=== PATIENT | male | born 1980 | race Caucasian/White ===

== ENCOUNTER → 2017-12-05 | Outpatient (CLI) | payer MEDICARE, OTHER ==
[~2017-12-05] MED LIST: B-121000 MC2; BUSP15; Benztropine Me0.5 MG; Benztropine Mesy1 MG; Crutch1 EACH MISC; DOXY100 PO; DULOXETINE HCL60 MG; HYDACE10B PO; HYDACE5 PO; HYDPAM25; IBUP800 PO; Keflex500 MG PO; LAMO100; Loxapine25 MG; MARIJUANA; PERP4 PO; PRAZ2; PRAZ5 PO; PROACE100 PO; Percocet 10-321 EACH PO; Prazosin HCl1 MG; Prazosin HCl2 MG; Robaxin500 MG PO; SERT100 PO; TIZANIDINE HCL 4 MG; TRAZ100; TRAZ50; Ultram50 MG PO; VENL150ER; VENL75ER PO; Zofran Odt8 MG SL
[2017-12-05 09:37] LABS: Specimen Source URINE
[2017-12-06 01:06] LABS: Source Urine
[2017-12-08 10:43] LABS: HCV Non Reactive (NR)
== END | disposition home or self-care (01) ==
LOC: LAB EV 09:26
PROVIDERS: Physician Assistant Surgical
DX: N34.2 Other urethritis (principal); Z20.9 Contact with and (suspected) exposure to unspecified communicable disease; R30.0 Dysuria; R53.83 Other fatigue
CPT/HCPCS: 80074; 86592; 87086; 87389; 87491; 87591

== ENCOUNTER 2017-12-31 08:39 | Day surgery (SDC) | payer OTHER, MEDICARE ==
[~2017-12-31] VITALS: Ht 175.3 cm; Wt 69.6 kg
== END 2017-12-31 11:26 | disposition home or self-care (01) ==
LOC: ORSCSDS 08:39
PROVIDERS: Ophthalmology
PROC: 08C Eye, Extirpation (ICD-10-PCS; principal; 2017-12-31 10:00)
DX: H02.814 Retained foreign body in left upper eyelid (principal); F20.9 Schizophrenia, unspecified; Z79.899 Other long term (current) drug therapy; F17.210 Nicotine dependence, cigarettes, uncomplicated
CPT/HCPCS: J2250; J3010

== ENCOUNTER → 2019-01-18 | Outpatient (CLI) | payer MEDICARE ==
[2019-01-18 16:02] LABS: Prostate Specific Antigen 0.482 ng/mL (0.000-4.000)
== END | disposition home or self-care (01) ==
LOC: LAB EV 14:40 → LAB SHORT 14:40
PROVIDERS: Physician Assistant Medical
DX: Z12.5 Encounter for screening for malignant neoplasm of prostate (principal); R39.198 Other difficulties with micturition
CPT/HCPCS: G0103

== ENCOUNTER 2019-03-08 19:07 | Observation (INO) | payer MEDICARE, OTHER ==
[~2019-03-08] VITALS: Ht 175.3 cm; Wt 77.1 kg
[~2019-03-08 19:07] MED LIST changes: -B-121000 MC2; +B-121000 MC2 PO; -HYDPAM25; +HYDPAM25 PO; -LAMO100; +LAMO100 PO; -VENL150ER; +VENL150ER PO
[2019-03-08] MEDS ORDERED: OLANZAPINE15 MG PO (20:13)
[2019-03-08 20:24] LABS: BASOPHILS ABSOLUTE AUTO 0.03 K/mm3 (0.00-0.23); BASOPHILS PERCENT AUTO 0 % (0-2); EOSINOPHILS ABSOLUTE AUTO 0.06 K/mm3 (0.00-0.68); EOSINOPHILS PERCENT AUTO 1 % (0-6); Hematocrit 44.3 % (37.0-53.0); Hemoglobin 14.9 g/dL (13.5-17.5); IMMATURE GRAN ABSOLUTE AUTO 0.06 K/mm3 (0.00-0.10); IMMATURE GRAN PERCENT AUTO 1 % (0-1); LYMPHOCYTES ABSOLUTE AUTO 2.93 K/mm3 (0.84-5.20); LYMPHOCYTES PERCENT AUTO 32 % (21-46); MONOCYTES ABSOLUTE AUTO 0.74 K/mm3 (0.16-1.47); MONOCYTES PERCENT AUTO 8 % (4-13); Mean Corpuscular HGB Conc 33.6 g/dL (31.5-36.5); Mean Corpuscular Volume 89 fL (80-100); Mean Platelet Volume 9.3 fL (9.1-12.4); NEUTROPHILS ABSOLUTE AUTO 5.27 K/mm3 (1.96-9.15); NEUTROPHILS PERCENT AUTO 58 % (41-73); Platelet Count 238 K/mm3 (150-400); RDW Coefficient Variation 12.8 % (11.7-14.2); Red Blood Cell Count 4.96 M/mm3 (4.30-5.90); White Blood Cell Count 9.09 K/mm3 (4.00-11.30)
[2019-03-08 20:46] LABS: Alanine Aminotransfer (ALT/SGP 33 U/L (12-78); Albumin/Globulin Ratio 1.3 (0.8-1.8); Alk Phos 145 U/L (50-136); Anion Gap 6 mmol/L (6-16); Aspartate Aminotrans (AST/SGOT 18 U/L (12-37); Bilirubin, Total 0.8 mg/dL (0.1-1.0); Blood Urea Nitrogen 8 mg/dL (8-24); Bun/Creatinine Ratio 7.4 (12.0-20.0); CO2, Blood 29 mmol/L (21-32); Calcium, Blood 9.1 mg/dL (8.5-10.1); Chloride, Blood 105 mmol/L (98-108); Creatinine, Blood 1.08 mg/dL (0.60-1.20); Ethanol (Alcohol), Blood, Med <3 mg/dL; Globulin, Blood 3.1 g/dL (2.2-4.0); Glomerular Filtration Rate >60 (60-); Glucose, Blood 80 mg/dL (70-99); Potassium, Blood 3.7 mmol/L (3.5-5.5); Salicylate 3.9 mg/dL (2.8-20.0); Sodium, Blood 140 mmol/L (136-145); Total Protein, Blood 7.1 g/dL (6.4-8.2)
[2019-03-08 20:50] LABS: Acetaminophen, Random <2.0 ug/mL (10.0-30.0)
[2019-03-09 11:39] LABS: Source, Urine Clean Catch
[2019-03-09 12:17] LABS: Blood, Urine Neg (Neg); Glucose Qualitative, Urine Neg (Neg); Ketones, Urine 1+ (Neg); Leukocyte Esterase, Urine 2+ (Neg); Nitrite, Urine Neg (Neg); Protein, Urine 2+ (Neg); Specific Gravity, Urine 1.015 (1.003-1.022); Urobilinogen, Urine 2+ (Normal); pH, Urine 6.5 (5.0-8.0)
[2019-03-09 12:25] LABS: Appearance, Urine Hazy (Clear); Bilirubin, Urine 1+ (Neg); Color, Urine Yellow (P-Yellow)
[2019-03-09 12:26] LABS: White Blood Cells, Urine 25-50 /hpf (0-5)
[2019-03-09 12:27] LABS: Bacteria Few /hpf; Mucus Light (0-Heavy); Source, Urine Clean Catch; Squamous Epithelial Cells Few /hpf (Few)
[2019-03-09 12:35] LABS: U Amphetamine Screen DETECTED; U Barbituate Screen Not Detected; U Benzodiazapine Screen DETECTED; U Cocaine Screen Not Detected; U Methadone Screen Not Detected; U Methamphetamine Screen DETECTED; U Opiates Screen Not Detected
[2019-03-09 12:36] LABS: U Buprenorphine Screen Not Detected; U Cannabinoids Screen DETECTED; U Oxycodone Screen Not Detected; U Phencyclidine Screen DETECTED; U Propoxyphene Screen Not Detected
[2019-03-09 12:48] LABS: Bacteria Few /hpf; Mucus Light (0-Heavy); Squamous Epithelial Cells Few /hpf (Few); White Blood Cells, Urine 25-50 /hpf (0-5)
== END 2019-03-10 13:49 | disposition home or self-care (01) ==
LOC: ER 19:07 → EOR 19:08
PROVIDERS: Physician Assistant; ADMIT Emergency Medicine
DX: F25.9 Schizoaffective disorder, unspecified (principal); F32.9 Major depressive disorder, single episode, unspecified; E78.5 Hyperlipidemia, unspecified; Z79.899 Other long term (current) drug therapy; Z91.041 Radiographic dye allergy status; Z88.2 Allergy status to sulfonamides; Z88.1 Allergy status to other antibiotic agents; Z87.891 Personal history of nicotine dependence
CPT/HCPCS: 36415; 80053; 81001; 84439; 84443; 85025; 87086; 99285; G0378; G0480; Q3014

== ENCOUNTER 2021-08-29 21:34 | Inpatient (IN) | payer MEDICARE, OTHER ==
[~2021-08-29] VITALS: Ht 175.3 cm; Wt 84.8 kg
[~2021-08-29 21:34] MED LIST changes: +OLANZAPINE15 MG PO
[2021-08-29 21:55] LABS: BASOPHILS ABSOLUTE AUTO 0.06 K/mm3 (0.00-0.23); BASOPHILS PERCENT AUTO 1 % (0-2); EOSINOPHILS PERCENT AUTO 1 % (0-6); Hemoglobin 14.1 g/dL (13.5-17.5); IMMATURE GRAN ABSOLUTE AUTO 0.11 K/mm3 (0.00-0.10); IMMATURE GRAN PERCENT AUTO 1 % (0-1); LYMPHOCYTES ABSOLUTE AUTO 3.12 K/mm3 (0.84-5.20); LYMPHOCYTES PERCENT AUTO 24 % (21-46); MONOCYTES ABSOLUTE AUTO 1.12 K/mm3 (0.16-1.47); MONOCYTES PERCENT AUTO 9 % (4-13); Mean Corpuscular HGB 29.3 pg (26.0-34.0); Mean Corpuscular HGB Conc 32.8 g/dL (31.5-36.5); Mean Corpuscular Volume 89 fL (80-100); NEUTROPHILS PERCENT AUTO 65 % (41-73); Platelet Count 269 K/mm3 (150-400); RDW Standard Deviation 42.5 fL (35.1-46.3); Red Blood Cell Count 4.81 M/mm3 (4.30-5.90); White Blood Cell Count 13.01 K/mm3 (4.00-11.30)
[2021-08-29 22:23] LABS: Alanine Aminotransfer (ALT/SGP 30 U/L (12-78); Albumin, Blood 3.7 g/dL (3.4-5.0); Alk Phos 137 U/L (50-136); Anion Gap 9 mmol/L (6-16); Aspartate Aminotrans (AST/SGOT 15 U/L (12-37); Bilirubin, Total 0.7 mg/dL (0.1-1.0); Blood Urea Nitrogen 12 mg/dL (8-24); Bun/Creatinine Ratio 10.6 (12.0-20.0); CO2, Blood 28 mmol/L (21-32); Calcium, Blood 9.3 mg/dL (8.5-10.1); Chloride, Blood 101 mmol/L (98-108); Creatinine, Blood 1.13 mg/dL (0.60-1.20); Globulin, Blood 3.6 g/dL (2.2-4.0); Glomerular Filtration Rate >60 (60-); Glucose, Blood 103 mg/dL (70-99); Potassium, Blood 3.9 mmol/L (3.5-5.5); Sodium, Blood 138 mmol/L (136-145); Total Protein, Blood 7.3 g/dL (6.4-8.2)
[2021-08-29 22:53] LABS: Source, Urine Clean Catch
[2021-08-29 22:55] LABS: Bilirubin, Urine Neg (Neg); Blood, Urine Neg (Neg); Glucose Qualitative, Urine Neg (Neg); Ketones, Urine Neg (Neg); Leukocyte Esterase, Urine 1+ (Neg); Nitrite, Urine Neg (Neg); Protein, Urine 1+ (Neg); Specific Gravity, Urine 1.015 (1.003-1.022); Urobilinogen, Urine NORM (Normal); pH, Urine 6.5 (5.0-8.0)
[2021-08-29 23:15] LABS: U Amphetamine Screen Not Detected; U Barbituate Screen Not Detected; U Benzodiazapine Screen Not Detected; U Buprenorphine Screen Not Detected; U Cannabinoids Screen DETECTED; U Cocaine Screen Not Detected; U Methadone Screen Not Detected; U Methamphetamine Screen Not Detected; U Opiates Screen Not Detected; U Oxycodone Screen Not Detected; U Phencyclidine Screen Not Detected; U Propoxyphene Screen Not Detected
[2021-08-29] MEDS ORDERED: BUPROPION XL150 M1 PO ×2 (23:30)
[2021-08-29] MEDS ORDERED: OLANZAPINE PO (23:31)
[2021-08-29] MEDS ORDERED: TAMSULOSIN HCL0.4 M1 PO (23:31)
[2021-08-29] MEDS ORDERED: BUPR150ER (23:32)
[2021-08-29] MEDS ORDERED: Budeprion Xl300 MG (23:34)
[2021-08-29 23:42] LABS: Appearance, Urine Clear (Clear); Color, Urine Yellow (P-Yellow)
[2021-08-29 23:43] LABS: Troponin I <0.015 ng/mL (0.000-0.040)
[2021-08-29 23:44] LABS: Bacteria Few /hpf; Mucus Light (0-Heavy); Red Blood Cells, Urine 0-2 /hpf (0-2); Squamous Epithelial Cells Few /hpf (Few)
[2021-08-30 00:51] LABS: Influenza A, PCR NEGATIVE (NEGATIVE); Influenza B, PCR NEGATIVE (NEGATIVE); Resp Syncytial Virus, PCR NEGATIVE (NEGATIVE); SARS-Cov-2 (COVID-19) PCR, MMC NEGATIVE (NEGATIVE)
--- NOTE | 2021-08-30 04:28 | NUR ---
PT WAS ALERT AND ORIENTED X4, VITAL SIGNS WHERE STABLE. PT HAS PAIN IN RIGHT HAND AND LEFT LEG DUE TO CELLULITIS. 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
[2021-08-30 05:40] LABS: BASOPHILS ABSOLUTE AUTO 0.04 K/mm3 (0.00-0.23); BASOPHILS PERCENT AUTO 0 % (0-2); EOSINOPHILS PERCENT AUTO 1 % (0-6); Hematocrit 39.1 % (37.0-53.0); Hemoglobin 13.1 g/dL (13.5-17.5); IMMATURE GRAN ABSOLUTE AUTO 0.09 K/mm3 (0.00-0.10); IMMATURE GRAN PERCENT AUTO 1 % (0-1); LYMPHOCYTES ABSOLUTE AUTO 1.66 K/mm3 (0.84-5.20); LYMPHOCYTES PERCENT AUTO 16 % (21-46); MONOCYTES ABSOLUTE AUTO 0.91 K/mm3 (0.16-1.47); MONOCYTES PERCENT AUTO 9 % (4-13); Mean Corpuscular HGB 29.9 pg (26.0-34.0); Mean Corpuscular HGB Conc 33.5 g/dL (31.5-36.5); Mean Corpuscular Volume 89 fL (80-100); Mean Platelet Volume 9.3 fL (9.1-12.4); NEUTROPHILS PERCENT AUTO 73 % (41-73); Platelet Count 215 K/mm3 (150-400); RDW Coefficient Variation 12.9 % (11.7-14.2); RDW Standard Deviation 42.3 fL (35.1-46.3); Red Blood Cell Count 4.38 M/mm3 (4.30-5.90)
[2021-08-30 06:46] LABS: Alanine Aminotransfer (ALT/SGP 24 U/L (12-78); Albumin, Blood 3.2 g/dL (3.4-5.0); Alk Phos 121 U/L (50-136); Anion Gap 8 mmol/L (6-16); Aspartate Aminotrans (AST/SGOT 12 U/L (12-37); Bilirubin, Total 0.7 mg/dL (0.1-1.0); Blood Urea Nitrogen 11 mg/dL (8-24); Bun/Creatinine Ratio 11.4 (12.0-20.0); CO2, Blood 29 mmol/L (21-32); Chloride, Blood 102 mmol/L (98-108); Creatinine, Blood 0.97 mg/dL (0.60-1.20); Globulin, Blood 3.3 g/dL (2.2-4.0); Glomerular Filtration Rate >60 (60-); Glucose, Blood 111 mg/dL (70-99); Potassium, Blood 4.3 mmol/L (3.5-5.5); Sodium, Blood 139 mmol/L (136-145); Total Protein, Blood 6.5 g/dL (6.4-8.2)
--- NOTE | 2021-08-30 17:35 | NUR ---
PATIENT A/O X4. VITALS STABLES. PT COMPLAINTS OF PAIN IN RIGHT ANKLE, RIGHT HAND. PAIN TREATED PER NOV. PT AMBULATES WELL TO THE BATHROOM. NO SIGNS OF ACUTE CHANGES. FAMILY AT BEDSIDE
--- NOTE | 2021-08-31 04:28 | NUR ---
PT WAS ALERT AND ORIENTED X4, STABLE VITALS, NO ACUTE CHANGES. SWELLING ON HAND AND FEET ARE REDUCING. PAIN ONLY REQUESTED FOR TYLENOL ONCE AT THE BEGIN OF THE SHIFT AND SLEPT THE WHOLE NIGHT.
[2021-08-31 06:08] LABS: BASOPHILS ABSOLUTE AUTO 0.03 K/mm3 (0.00-0.23); BASOPHILS PERCENT AUTO 0 % (0-2); EOSINOPHILS ABSOLUTE AUTO 0.15 K/mm3 (0.00-0.68); EOSINOPHILS PERCENT AUTO 2 % (0-6); Hematocrit 41.2 % (37.0-53.0); Hemoglobin 13.4 g/dL (13.5-17.5); IMMATURE GRAN ABSOLUTE AUTO 0.08 K/mm3 (0.00-0.10); IMMATURE GRAN PERCENT AUTO 1 % (0-1); LYMPHOCYTES ABSOLUTE AUTO 1.81 K/mm3 (0.84-5.20); LYMPHOCYTES PERCENT AUTO 20 % (21-46); MONOCYTES PERCENT AUTO 9 % (4-13); Mean Corpuscular HGB 29.5 pg (26.0-34.0); Mean Corpuscular HGB Conc 32.5 g/dL (31.5-36.5); Mean Corpuscular Volume 91 fL (80-100); Mean Platelet Volume 9.4 fL (9.1-12.4); NEUTROPHILS ABSOLUTE AUTO 6.12 K/mm3 (1.96-9.15); NEUTROPHILS PERCENT AUTO 68 % (41-73); Platelet Count 209 K/mm3 (150-400); RDW Standard Deviation 42.6 fL (35.1-46.3); Red Blood Cell Count 4.55 M/mm3 (4.30-5.90); White Blood Cell Count 8.99 K/mm3 (4.00-11.30)
[2021-08-31 06:42] LABS: Anion Gap 9 mmol/L (6-16); Blood Urea Nitrogen 14 mg/dL (8-24); Bun/Creatinine Ratio 15.1 (12.0-20.0); CO2, Blood 25 mmol/L (21-32); Calcium, Blood 9.3 mg/dL (8.5-10.1); Chloride, Blood 106 mmol/L (98-108); Creatinine, Blood 0.93 mg/dL (0.60-1.20); Glomerular Filtration Rate >60 (60-); Glucose, Blood 102 mg/dL (70-99); Potassium, Blood 4.5 mmol/L (3.5-5.5); Sodium, Blood 140 mmol/L (136-145)
--- NOTE | 2021-08-31 10:09 | NUR ---
PT HR ELEVATED. PATIENT ASYMPTOMATIC,WATCHING TV AND TALKING TO STAFF.DR BRUCE NOTIFIED.NO ORDER RECEIVED.WILL CONTINUE TO MONITOR
[2021-08-31 10:45] LABS: Vancomycin, Trough 15.6 ug/mL (5.0-10.0)
[2021-08-31] MEDS ORDERED: Acetaminophen325 M1 PO (16:03)
[2021-08-31] MEDS ORDERED: DOXY100 PO (16:03)
[2021-08-31] MEDS ORDERED: AMOX875 PO (16:03)
[2021-08-31] MEDS ORDERED: VISBIOME 112.51 EACH PO (16:03)
--- NOTE | 2021-08-31 17:15 | NUR ---
PT A/O X4. AMBULATES WELL IN ROOM, TO THE BATHROOM. NO COMPLAINTS OF PAIN. NO ACUTE CHANGES NOTED. PT IS PLEASANT AND COOPERATIVE.PT LYING IN BED WATCHING TV. CALL LIGHT WITHIN REACH, BED LOWEST POSITION
--- NOTE | 2021-08-31 17:19 | NUR ---
DISCHARGE ORDER RECEIVED FOR PATIENT. NO SIGNS OF ACUTE CHANGES. PATIENT DENIES PAIN/DISCOMFORT. SISTER AT BEDSIDE. DISCHARGE INSTRUCTIONS GIVEN TO PATIENT. REVIEWED MEDICATIONS WITH PATIENT. CONFIRMED PHARMACY. PATIENT VERBALIZE UNDERSTANDING. TELE BOX AND IV REMOVED. PATIENT LEFT AROUND 4:45PM
[2021-09-03 12:08] LABS: LYME IGG/IGM AB <0.91 ISR (0.00-0.90)
== END 2021-08-31 16:56 | disposition home or self-care (01) | DRG 872 ==
LOC: ER 21:34 → MEDS 23:37
PROVIDERS: Emergency Medicine; Pharmacist; Physician Assistant; Student in an Organized Health Care Education/Training Program; ADMIT Internal Medicine
DX: A41.9 Sepsis, unspecified organism (principal); L03.115 Cellulitis of right lower limb; L03.113 Cellulitis of right upper limb; Z20.822 Contact with and (suspected) exposure to COVID-19; N49.2 Inflammatory disorders of scrotum; L30.9 Dermatitis, unspecified; F41.8 Other specified anxiety disorders; N40.0 Benign prostatic hyperplasia without lower urinary tract symptoms; F25.9 Schizoaffective disorder, unspecified; E78.5 Hyperlipidemia, unspecified; F12.90 Cannabis use, unspecified, uncomplicated; Z98.890 Other specified postprocedural states; Z28.21 Immunization not carried out because of patient refusal; Z88.2 Allergy status to sulfonamides; Z91.041 Radiographic dye allergy status; Z79.899 Other long term (current) drug therapy
CPT/HCPCS: 0241U; 36415; 73700; 76870; 80048; 80053; 80202; 81001; 83605; 84484; 85025; 85651; 86038; 86140; 86592; 86618; 87040; 87070; 87075; 87086; 87205; 87591; 94760; 96365; 96366; 96367; 96375; 99285-25; A9270; J0696; J1650; J3010; J3370; J7050

== ENCOUNTER 2022-06-27 11:54 | Emergency (ER) | payer MEDICARE, OTHER ==
[~2022-06-27] VITALS: Ht 175.3 cm; Wt 81.7 kg
[~2022-06-27 11:54] MED LIST changes: +AMOX875 PO; +Acetaminophen325 M1 PO; +BUPR150ER; +BUPROPION XL150 M1 PO; +Budeprion Xl300 MG; +OLANZAPINE PO; +TAMSULOSIN HCL0.4 M1 PO; +VISBIOME 112.51 EACH PO
[2022-06-27] MEDS ORDERED: DAPS100 PO (12:36)
[2022-06-27] MEDS ORDERED: METPRE4DP PO (12:36)
[2022-07-08] MEDS ORDERED: PRED20 PO (10:54)
== END 2022-06-27 12:43 | disposition home or self-care (01) ==
LOC: ER 11:54
DX: L52 Erythema nodosum (principal)
CPT/HCPCS: 99282

== ENCOUNTER → 2023-04-22 | Outpatient (CLI) | payer MEDICARE, OTHER ==
[~2023-04-22] MED LIST changes: +DAPS100 PO; +METPRE4DP PO; +PRED20 PO
[2023-04-24 10:29] LABS: Stool Occult Bld Immuno 1 Negative (NEGATIVE)
== END ==
LOC: LAB SHORT 07:00 → LAB 07:00
PROVIDERS: Physician Assistant
DX: Z12.11 Encounter for screening for malignant neoplasm of colon (principal)
CPT/HCPCS: G0328

== ENCOUNTER 2024-09-30 01:11 | Day surgery (SDC) | payer MEDICARE, OTHER ==
[~2024-09-30 01:11] MED LIST changes: +ABILIFY5 MG PO; +QUETIAPINE FUMARATE PO
[2024-09-30 14:05] VITALS: BP 128/90
[2024-09-30] MEDS ORDERED: GOLIMUMAB IV SCH (14:20)
[2024-09-30] MEDS ORDERED: NS IV SCH (14:20)
[2024-09-30 14:53] LABS: BASOPHILS ABSOLUTE AUTO 0.05 K/mm3 (0.00-0.23); BASOPHILS PERCENT AUTO 1 % (0-2); EOSINOPHILS ABSOLUTE AUTO 0.15 K/mm3 (0.00-0.68); EOSINOPHILS PERCENT AUTO 2 % (0-6); Hematocrit 39.4 % (37.0-53.0); Hemoglobin 13.8 g/dL (13.5-17.5); IMMATURE GRAN ABSOLUTE AUTO 0.06 K/mm3 (0.00-0.10); IMMATURE GRAN PERCENT AUTO 1 % (0-1); LYMPHOCYTES ABSOLUTE AUTO 3.18 K/mm3 (0.84-5.20); LYMPHOCYTES PERCENT AUTO 43 % (21-46); MONOCYTES PERCENT AUTO 7 % (4-13); Mean Corpuscular HGB 31.2 pg (26.0-34.0); Mean Corpuscular Volume 89 fL (80-100); Mean Platelet Volume 9.3 fL (9.1-12.4); NEUTROPHILS ABSOLUTE AUTO 3.44 K/mm3 (1.96-9.15); NEUTROPHILS PERCENT AUTO 47 % (41-73); Platelet Count 179 K/mm3 (150-400); RDW Coefficient Variation 12.2 % (11.7-14.2); RDW Standard Deviation 40.1 fL (35.1-46.3); Red Blood Cell Count 4.43 M/mm3 (4.30-5.90); White Blood Cell Count 7.38 K/mm3 (4.00-11.30)
[2024-09-30 15:35] LABS: Albumin, Blood 3.7 g/dL (3.4-5.0); Albumin/Globulin Ratio 1.3 (0.8-1.8); Bilirubin, Total 0.4 mg/dL (0.1-1.0); Bun/Creatinine Ratio 7.3 (12.0-20.0); C-REACTIVE PROTEIN, EXT RANGE 0.312 mg/dL (0.000-0.300); Calcium, Blood 9.2 mg/dL (8.5-10.1); Creatinine, Blood 1.1 mg/dL (0.60-1.20); Globulin, Blood 2.9 g/dL (2.2-4.0); Potassium, Blood 3.7 mmol/L (3.5-5.5); Total Protein, Blood 6.6 g/dL (6.4-8.2)
== END 2024-09-30 15:10 | disposition home or self-care (01) ==
LOC: ATC 01:11
PROVIDERS: Internal Medicine
DX: M06.09 Rheumatoid arthritis without rheumatoid factor, multiple sites (principal); F20.9 Schizophrenia, unspecified; F31.9 Bipolar disorder, unspecified; F43.10 Post-traumatic stress disorder, unspecified; Z79.899 Other long term (current) drug therapy; Z91.030 Bee allergy status
CPT/HCPCS: 80053; 85025; 86140; 96365; J1602

== ENCOUNTER 2024-12-01 02:18 | Day surgery (SDC) | payer MEDICARE, OTHER ==
[2024-12-01 13:50] VITALS: BP 129/86
[2024-12-01] MEDS ORDERED: PRAZ5 PO (13:54)
[2024-12-01] MEDS ORDERED: NS IV SCH (13:55)
[2024-12-01] MEDS ORDERED: GOLIMUMAB IV SCH (13:55)
== END 2024-12-01 15:10 | disposition home or self-care (01) ==
LOC: ATC 02:18
DX: M06.09 Rheumatoid arthritis without rheumatoid factor, multiple sites (principal); F31.9 Bipolar disorder, unspecified; F43.10 Post-traumatic stress disorder, unspecified; F20.9 Schizophrenia, unspecified; Z79.899 Other long term (current) drug therapy; Z87.891 Personal history of nicotine dependence; Z91.030 Bee allergy status; Z88.2 Allergy status to sulfonamides; Z88.8 Allergy status to other drugs, medicaments and biological substances
CPT/HCPCS: 96365; J1602

== ENCOUNTER 2025-01-26 01:52 | Day surgery (SDC) | payer MEDICARE, OTHER ==
[2025-01-26 14:05] VITALS: BP 110/77
[2025-01-26] MEDS ORDERED: NS IV SCH (14:20)
[2025-01-26] MEDS ORDERED: GOLIMUMAB IV SCH (14:20)
[2025-01-26 14:48] LABS: BASOPHILS ABSOLUTE AUTO 0.03 K/mm3 (0.00-0.23); BASOPHILS PERCENT AUTO 0 % (0-2); EOSINOPHILS PERCENT AUTO 3 % (0-6); Hematocrit 42.2 % (37.0-53.0); Hemoglobin 14.6 g/dL (13.5-17.5); IMMATURE GRAN ABSOLUTE AUTO 0.03 K/mm3 (0.00-0.10); IMMATURE GRAN PERCENT AUTO 0 % (0-1); LYMPHOCYTES PERCENT AUTO 46 % (21-46); MONOCYTES ABSOLUTE AUTO 0.53 K/mm3 (0.16-1.47); MONOCYTES PERCENT AUTO 7 % (4-13); Mean Corpuscular HGB 30.6 pg (26.0-34.0); Mean Corpuscular HGB Conc 34.6 g/dL (31.5-36.5); Mean Corpuscular Volume 89 fL (80-100); Mean Platelet Volume 9.6 fL (9.1-12.4); NEUTROPHILS ABSOLUTE AUTO 3.29 K/mm3 (1.96-9.15); NEUTROPHILS PERCENT AUTO 43 % (41-73); Platelet Count 188 K/mm3 (150-400); RDW Coefficient Variation 12.2 % (11.7-14.2); RDW Standard Deviation 40.1 fL (35.1-46.3); Red Blood Cell Count 4.77 M/mm3 (4.30-5.90); White Blood Cell Count 7.58 K/mm3 (4.00-11.30)
[2025-01-26 15:22] LABS: Alanine Aminotransfer (ALT/SGP 32 U/L (12-78); Albumin, Blood 3.8 g/dL (3.4-5.0); Albumin/Globulin Ratio 1.4 (0.8-1.8); Alk Phos 103 U/L (50-136); Anion Gap 9 mmol/L (3-11); Aspartate Aminotrans (AST/SGOT 19 U/L (12-37); Bilirubin, Total 0.3 mg/dL (0.1-1.0); Blood Urea Nitrogen 13 mg/dL (8-24); Bun/Creatinine Ratio 12.7 (12.0-20.0); C-REACTIVE PROTEIN, EXT RANGE <0.290 mg/dL (0.000-0.300); CO2, Blood 28 mmol/L (21-32); Calcium, Blood 9.3 mg/dL (8.5-10.1); Chloride, Blood 104 mmol/L (98-108); Creatinine, Blood 1.02 mg/dL (0.60-1.20); Globulin, Blood 2.8 g/dL (2.2-4.0); Glomerular Filtration Rate 92 (60-); Glucose, Blood 106 mg/dL (70-99); Potassium, Blood 4.2 mmol/L (3.5-5.5); Sodium, Blood 137 mmol/L (136-145); Total Protein, Blood 6.6 g/dL (6.4-8.2)
== END 2025-01-26 15:16 | disposition home or self-care (01) ==
LOC: ATC 01:52
PROVIDERS: Internal Medicine Rheumatology
DX: M06.09 Rheumatoid arthritis without rheumatoid factor, multiple sites (principal); Z79.899 Other long term (current) drug therapy; Z88.2 Allergy status to sulfonamides; Z88.8 Allergy status to other drugs, medicaments and biological substances; Z91.030 Bee allergy status; Z87.891 Personal history of nicotine dependence
CPT/HCPCS: 80053; 85025; 86140; 96365; J1602

== ENCOUNTER 2025-03-30 02:48 | Day surgery (SDC) | payer MEDICARE, OTHER ==
[2025-03-30 11:30] VITALS: BP 108/79
[2025-03-30] MEDS ORDERED: NS IV SCH (11:35)
[2025-03-30] MEDS ORDERED: GOLIMUMAB IV SCH (11:35)
== END 2025-03-30 12:50 | disposition home or self-care (01) ==
LOC: ATC 02:48
DX: M06.09 Rheumatoid arthritis without rheumatoid factor, multiple sites (principal); Z87.891 Personal history of nicotine dependence; Z88.2 Allergy status to sulfonamides; Z88.8 Allergy status to other drugs, medicaments and biological substances; Z91.030 Bee allergy status; Z91.041 Radiographic dye allergy status
CPT/HCPCS: 96365; J1602

== ENCOUNTER 2025-04-26 23:24 | Emergency (ER) | payer MEDICARE, OTHER ==
[~2025-04-26] VITALS: Ht 175.3 cm; Wt 82.5 kg
[2025-04-27 01:00] LABS: BASOPHILS ABSOLUTE AUTO 0.02 K/mm3 (0.00-0.23); BASOPHILS PERCENT AUTO 0 % (0-2); EOSINOPHILS ABSOLUTE AUTO 0.06 K/mm3 (0.00-0.68); EOSINOPHILS PERCENT AUTO 1 % (0-6); Hematocrit 42.9 % (37.0-53.0); Hemoglobin 14.4 g/dL (13.5-17.5); IMMATURE GRAN ABSOLUTE AUTO 0.04 K/mm3 (0.00-0.10); IMMATURE GRAN PERCENT AUTO 1 % (0-1); LYMPHOCYTES ABSOLUTE AUTO 2.76 K/mm3 (0.84-5.20); LYMPHOCYTES PERCENT AUTO 40 % (21-46); MONOCYTES ABSOLUTE AUTO 0.54 K/mm3 (0.16-1.47); MONOCYTES PERCENT AUTO 8 % (4-13); Mean Corpuscular HGB Conc 33.6 g/dL (31.5-36.5); Mean Corpuscular Volume 92 fL (80-100); NEUTROPHILS ABSOLUTE AUTO 3.44 K/mm3 (1.96-9.15); NEUTROPHILS PERCENT AUTO 50 % (41-73); NRBC ABSOLUTE 0.00 K/mm3 (0.00-0.02); NRBC Auto 0.0 /100 WBC (0.0-0.2); Platelet Count 187 K/mm3 (150-400); RDW Coefficient Variation 13.1 % (11.7-14.2); RDW Standard Deviation 43.8 fL (35.1-46.3)
[2025-04-27] MEDS ORDERED: DiphenhydrAMINE HCl 50 MG/ML 1ML Vial IV ONE (01:00)
[2025-04-27 01:20] LABS: Alanine Aminotransfer (ALT/SGP 27.0 U/L (12-78); Albumin, Blood 4.1 g/dL (3.4-5.0); Albumin/Globulin Ratio 1.3 (0.8-1.8); Anion Gap 8.0 mmol/L (3-11); Aspartate Aminotrans (AST/SGOT 16.0 U/L (12-37); Bilirubin, Total 0.5 mg/dL (0.1-1.0); Blood Urea Nitrogen 11.0 mg/dL (8-24); CO2, Blood 27.0 mmol/L (21-32); Calcium, Blood 9.1 mg/dL (8.5-10.1); Chloride, Blood 107.0 mmol/L (98-108); Creatinine, Blood 1.2 mg/dL (0.60-1.20); Globulin, Blood 3.2 g/dL (2.2-4.0); Glucose, Blood 108.0 mg/dL (70-99); Magnesium, Blood 2.2 mg/dL (1.6-2.4); Phosphorus, Blood 2.4 mg/dL (2.5-4.9); Potassium, Blood 3.3 mmol/L (3.5-5.5); Sodium, Blood 139.0 mmol/L (136-145); Total Protein, Blood 7.3 g/dL (6.4-8.2)
[2025-04-27] MEDS ORDERED: Potassium Chloride 10 Meq Tablet SA PO ONE (02:45)
[2025-04-27 03:51] LABS: Source, Urine Clean Catch
[2025-04-27 03:54] LABS: Bilirubin, Urine Neg (Neg); Glucose Qualitative, Urine 4+ (Neg); Ketones, Urine Neg (Neg); Leukocyte Esterase, Urine Neg (Neg); Protein, Urine 1+ (Neg); Specific Gravity, Urine 1.010 (1.003-1.022); Urobilinogen, Urine NORM (Normal)
[2025-04-27 03:57] LABS: Color, Urine Yellow (P-Yellow)
[2025-04-27 04:04] LABS: U Amphetamine Screen Not Detected; U Barbituate Screen Not Detected; U Benzodiazapine Screen Not Detected; U Buprenorphine Screen Not Detected; U Cannabinoids Screen DETECTED; U Cocaine Screen Not Detected; U Methadone Screen Not Detected; U Methamphetamine Screen Not Detected; U Opiates Screen Not Detected; U Oxycodone Screen Not Detected; U Phencyclidine Screen Not Detected
[2025-04-27 07:30] VITALS: BP 110/86
[2025-04-27] MEDS ORDERED: Dexamethasone Sod Phos 10 MG/ML 1ML VIAL IV ONE (12:50)
[2025-04-27] MEDS ORDERED: PRED20 PO (12:53)
== END 2025-04-27 13:10 | disposition home or self-care (01) ==
LOC: ER 23:24
PROVIDERS: Emergency Medicine
DX: M54.16 Radiculopathy, lumbar region (principal); E87.6 Hypokalemia; E83.39 Other disorders of phosphorus metabolism; F12.90 Cannabis use, unspecified, uncomplicated; F17.200 Nicotine dependence, unspecified, uncomplicated; E78.5 Hyperlipidemia, unspecified; Z88.2 Allergy status to sulfonamides; Z91.041 Radiographic dye allergy status; Z79.899 Other long term (current) drug therapy
CPT/HCPCS: 51798; 71046; 72158; 74177; 80053; 83735; 84100; 85025; 93005; 93010; 96374-59; 96375; 99285-25; A9270; A9579; J1100; J1200; J2919; Q9967

== ENCOUNTER 2025-06-22 01:20 | Day surgery (SDC) | payer MEDICARE, OTHER ==
[2025-06-22 16:02] VITALS: BP 100/74
[2025-06-22] MEDS ORDERED: NS IV SCH (16:20)
[2025-06-22] MEDS ORDERED: GOLIMUMAB IV SCH (16:20)
[2025-06-22 16:48] LABS: BASOPHILS ABSOLUTE AUTO 0.03 K/mm3 (0.00-0.23); BASOPHILS PERCENT AUTO 0 % (0-2); EOSINOPHILS ABSOLUTE AUTO 0.17 K/mm3 (0.00-0.68); EOSINOPHILS PERCENT AUTO 2 % (0-6); Hematocrit 42.3 % (37.0-53.0); Hemoglobin 14.6 g/dL (13.5-17.5); IMMATURE GRAN ABSOLUTE AUTO 0.03 K/mm3 (0.00-0.10); IMMATURE GRAN PERCENT AUTO 0 % (0-1); LYMPHOCYTES ABSOLUTE AUTO 3.01 K/mm3 (0.84-5.20); LYMPHOCYTES PERCENT AUTO 42 % (21-46); MONOCYTES ABSOLUTE AUTO 0.55 K/mm3 (0.16-1.47); MONOCYTES PERCENT AUTO 8 % (4-13); Mean Corpuscular HGB Conc 34.5 g/dL (31.5-36.5); Mean Corpuscular Volume 90 fL (80-100); NEUTROPHILS ABSOLUTE AUTO 3.36 K/mm3 (1.96-9.15); NEUTROPHILS PERCENT AUTO 47 % (41-73); NRBC ABSOLUTE 0.00 K/mm3 (0.00-0.02); NRBC Auto 0.0 /100 WBC (0.0-0.2); Platelet Count 199 K/mm3 (150-400); RDW Coefficient Variation 12.8 % (11.7-14.2); RDW Standard Deviation 42.0 fL (35.1-46.3)
[2025-06-22] MEDS ORDERED: ALPRAZOLAM110 PO (16:56)
[2025-06-22 17:03] LABS: C-REACTIVE PROTEIN, EXT RANGE <0.290 mg/dL (0.000-0.300)
[2025-06-22 17:05] LABS: Alanine Aminotransfer (ALT/SGP 34 U/L (12-78); Albumin, Blood 4.3 g/dL (3.4-5.0); Albumin/Globulin Ratio 1.6 (0.8-1.8); Anion Gap 6 mmol/L (3-11); Aspartate Aminotrans (AST/SGOT 16 U/L (12-37); Bilirubin, Total 0.6 mg/dL (0.1-1.0); Blood Urea Nitrogen 11 mg/dL (8-24); CO2, Blood 28 mmol/L (21-32); Calcium, Blood 9.7 mg/dL (8.5-10.1); Chloride, Blood 108 mmol/L (98-108); Creatinine, Blood 1.04 mg/dL (0.60-1.20); Globulin, Blood 2.7 g/dL (2.2-4.0); Glucose, Blood 97 mg/dL (70-99); Potassium, Blood 4.0 mmol/L (3.5-5.5); Sodium, Blood 138 mmol/L (136-145); Total Protein, Blood 7.0 g/dL (6.4-8.2)
== END 2025-06-22 17:04 | disposition home or self-care (01) ==
LOC: ATC 01:20
PROVIDERS: Internal Medicine
DX: M06.09 Rheumatoid arthritis without rheumatoid factor, multiple sites (principal); I50.22 Chronic systolic (congestive) heart failure; Z88.8 Allergy status to other drugs, medicaments and biological substances; Z88.2 Allergy status to sulfonamides
CPT/HCPCS: 80053; 85025; 86140; 96365; J1602

== ENCOUNTER 2025-08-25 02:25 | Day surgery (SDC) | payer MEDICARE, OTHER ==
[~2025-08-25] VITALS: Wt 81.9 kg
[~2025-08-25 02:25] MED LIST changes: +ALPRAZOLAM110 PO
[2025-08-25 15:40] VITALS: BP 131/90
== END 2025-08-25 16:55 | disposition home or self-care (01) ==
LOC: ATC 02:25
DX: M06.09 Rheumatoid arthritis without rheumatoid factor, multiple sites (principal); F20.9 Schizophrenia, unspecified; F31.9 Bipolar disorder, unspecified; F43.10 Post-traumatic stress disorder, unspecified; I50.22 Chronic systolic (congestive) heart failure; Z88.8 Allergy status to other drugs, medicaments and biological substances; Z87.891 Personal history of nicotine dependence; Z79.899 Other long term (current) drug therapy
CPT/HCPCS: 96365; J1602